=== PATIENT | female | born 1945 | race Caucasian/White ===

== ENCOUNTER → 2019-05-15 | Outpatient (CLI) | payer MEDICARE ==
--- NOTE | 2019-05-15 18:02 | PCVCIMAG ---
EXAM: BILATERAL LOWER EXTREMITY ARTERIAL DUPLEX INDICATION: Peripheral Arterial Disease. Leg pain. Nonhealing ulcer left lower leg medially. FINDINGS: Right Le% stenosis common femoral artery. Profunda femoral artery is patent. Long segment occlusion superficial femoral artery. Refilling of the popliteal artery without significant stenosis. Blunted arterial waveforms in the peroneal and anterior tibial arteries without additional stenoses seen. Posterior tibial arteries occluded. Left Leg: Common femoral and profunda femoral arteries are patent. 80-90% stenosis distal [place] left superficial femoral artery. Popliteal artery is patent. Anterior tibial artery is patent. Peroneal and posterior tibial arteries are occluded. IMPRESSION: Long segment occlusion [place] right superficial femoral artery. Occlusion right posterior tibial artery. 80-90% stenosis distal [place] left superficial femoral artery. 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 LOC:[id number]
== END | disposition home or self-care (01) ==
LOC: PCVCIMAG 14:40
PROVIDERS: ATTEND Family Medicine
DX: I73.9 Peripheral vascular disease, unspecified (principal); S81.802A Unspecified open wound, left lower leg, initial encounter; X58.XXXA Exposure to other specified factors, initial encounter; Y93.89 Activity, other specified; Y92.89 Other specified places as the place of occurrence of the external cause; Y99.8 Other external cause status
CPT/HCPCS: 93925